=== PATIENT | male | born 1985 | race Caucasian/White ===

== ENCOUNTER 2019-06-25 19:20 | Emergency (ER) | payer MEDICAID ==
[~2019-06-25] VITALS: Ht 182.9 cm; Wt 90.9 kg
[~2019-06-25 19:20] MED LIST: DOCU-144 PO; HYDR-4011 PO; IBUP800T48 PO
[2019-06-25 19:36] VITALS: Ht 182.9 cm; Wt 90.9 kg
[2019-06-25] MEDS ORDERED: SOD CHLORIDE 0.9% 1,000 ML IV STA (19:47)
[2019-06-25] MEDS ORDERED: ONDANSETRON 4 MG INJ IV ONE (20:00)
[2019-06-25] MEDS ORDERED: morphine 4 MG/ML VIAL IV ONE (20:00)
[2019-06-25] MEDS ORDERED: HYDROmorphONE 2 MG/ML SYG IV STA (22:31)
[2019-06-25] MEDS ORDERED: ONDANSETRON 4 MG INJ IV STA (22:31)
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
[2019-06-25] MEDS ORDERED: SILVER SULFADIAZINE 1% 25 GM CR TOP ONE (23:00)
[2019-06-25 23:51] VITALS: BP 137/85; PULSE 93; RESP 16
== END 2019-06-26 | disposition home or self-care (01) ==
LOC: E/R 19:20
DX: S42.101A Fracture of unspecified part of scapula, right shoulder, initial encounter for closed fracture (principal); R06.02 Shortness of breath; V28.4XXA Motorcycle driver injured in noncollision transport accident in traffic accident, initial encounter
CPT/HCPCS: 29105; 71045; 73030; 73060; 96361; 96374; 96375; 96376; J1170; J2270; J2405; J7030; Z7502; Z7610